=== PATIENT | female | born 1985 | race Caucasian/White ===

== ENCOUNTER → 2017-12-05 10:00 | Outpatient (CLI) | payer OTHER, SELFPAY ==
[2017-12-05 10:32] LABS: Absolute Lymphocyte Count 1.83 X10^3/ul (0.83-4.51); Absolute Neutrophil Count 2.8 X10^3/uL (2.0-7.7); Basophil# 0.02 X10^3/uL; Basophil% 0.4 % (0-1); Eosinophil# 0.12 X10^3/uL; Eosinophils% 2.4 % (0-5); Hematocrit 37.1 % (37-47); Hemoglobin 11.9 g/dl (12.0-15.0); Lymphocyte # 1.83 X10^3/ul (4.0); Mean Corp Hgb Conc 32.1 g/gl (32-36); Mean Corpuscular Hgb 27.5 pg (27.0-32.0); Mean Corpuscular Volume 85.7 fL (81-99); Mean Platelet Vol. 9.3 fl (6.2-12.0); Monocyte% 5.9 % (0-10); Neutrophil # 2.82 X10^3/uL (2.7-7.7); Neutrophil % 55.3 % (47-70); Platelet Count 344 K/mm3 (150-450); RBC Distribution Width SD 39.9 fl (35.1-43.9); Red Blood Count 4.33 M/mm3 (4.2-5.4); White Blood Count 5.1 K/mm3 (4.4-11.0)
[2017-12-05 10:36] LABS: POSITIVE COUNT NO; POSITIVE DIFFERENTIAL NO; POSITIVE MORPHOLOGY NO
[2017-12-05 10:58] LABS: Anion Gap 6 (5-15); BUN 21 mg/dL (7-18); BUN/Creat Ratio 36.2 RATIO (10-20); Calcium,Total 8.3 mg/dL (8.5-10.1); Chloride 105 mmol/L (98-107); Cholesterol 125 mg/dL (200); Creatinine, Serum 0.58 mg/dL (0.55-1.02); EST Glomerular Filtration Rate 128 mL/min (>60); Est Glom Filt Rate - Afr Amer 155 mL/min (>60); Glucose 81 mg/dL (74-106); High Density Lipoprotein 40 mg/dL; Potassium 3.7 mmol/L (3.5-5.1); Sodium Level 138 mmol/L (136-145); Triglycerides 43 mg/dL; Very Low Density Lipoprotein 9 mg/dL (5-40)
[2017-12-05 11:05] LABS: Vitamin D,25 Hydroxy 9.8 ng/mL (29.95-100.01)
== END ==
PROVIDERS: Family Provider Internal Medicine; PCP Internal Medicine; Visit Provider Internal Medicine
DX: Z00.00 Encounter for general adult medical examination without abnormal findings (principal)
CPT/HCPCS: 36415; 80048; 80061; 82306; 85025

== ENCOUNTER 2018-03-03 09:00 | Outpatient (RCR) | payer OTHER, SELFPAY | END 2018-03-14 23:59 | LOC: NS 09:00 | PROVIDERS: Family Provider Internal Medicine; PCP Internal Medicine; Visit Provider Internal Medicine | DX: E66.01 Morbid (severe) obesity due to excess calories (principal); Z71.3 Dietary counseling and surveillance | CPT/HCPCS: 97802; 97803 ==

== ENCOUNTER 2018-04-14 10:11 | Outpatient (RCR) | payer OTHER, SELFPAY | END 2018-04-14 23:59 | LOC: NS 10:11 | PROVIDERS: Family Provider Internal Medicine; PCP Internal Medicine; Visit Provider Internal Medicine | DX: E66.01 Morbid (severe) obesity due to excess calories (principal); Z71.3 Dietary counseling and surveillance | CPT/HCPCS: 97803 ==

== ENCOUNTER 2018-07-03 09:30 | Outpatient (RCR) | payer OTHER, SELFPAY | END 2018-07-15 23:59 | LOC: NS 09:30 | PROVIDERS: Family Provider Internal Medicine; PCP Internal Medicine; Visit Provider Internal Medicine | DX: E66.01 Morbid (severe) obesity due to excess calories (principal); Z71.3 Dietary counseling and surveillance | CPT/HCPCS: 97803 ==

== ENCOUNTER → 2020-02-18 | Outpatient (CLI) | payer OTHER, SELFPAY ==
[2020-02-18 15:12] VITALS: BMI 42.5
[2020-02-18 16:48] LABS: Absolute Lymphocyte Count 1.96 X10^3/uL (0.83-4.51); Basophil# 0.03 X10^3/uL; Basophil% 0.5 % (0-1); Eosinophils% 1.8 % (0-5); Hematocrit 39.2 % (37-47); Hemoglobin 12.4 g/dL (12.0-15.0); Lymphocyte # 1.96 X10^3/ul (4.0); Lymphocyte % 35.6 % (19-41); Mean Corp Hgb Conc 31.6 g/dL (32-36); Mean Corpuscular Hgb 28.6 pg (27.0-32.0); Mean Corpuscular Volume 90.5 fL (81-99); Mean Platelet Vol. 10.1 fl (6.2-12.0); Monocyte# 0.43 X10^3/uL; Monocyte% 7.8 % (0-10); NRBC Flagged by Analyzer 0 % (0-5); Neutrophil # 2.96 X10^3/uL (2.7-7.7); Neutrophil % 53.9 % (47-70); Platelet Count 320 K/mm3 (150-450); RBC Distribution Width CV 12.5 % (11.6-14.6); RBC Distribution Width SD 41.4 fl (35.1-43.9); Red Blood Count 4.33 M/mm3 (4.2-5.4); White Blood Count 5.5 K/mm3 (4.4-11.0)
[2020-02-18 17:09] LABS: Vitamin D,25 Hydroxy 12.6 ng/mL
[2020-02-18 17:14] LABS: ALB/GLOB Ratio 0.8 RATIO (0.9-2.4); AST(SGOT) 10 U/L (15-37); Alanine Aminotransfer ALT/SGPT 22 U/L (13-56); Albumin, Serum 3.4 g/dL (3.2-5.0); Alkaline Phosphatase 80 U/L (45-117); Anion Gap 5 (5-15); BUN 24 mg/dL (7-18); BUN/Creat Ratio 38.5 RATIO (10-20); Calcium,Total 8.6 mg/dL (8.5-10.1); Chloride 107 mmol/L (98-107); Creatinine, Serum 0.62 mg/dL (0.55-1.02); EST Glomerular Filtration Rate 116 mL/min (>60); Est Glom Filt Rate - Afr Amer 141 mL/min (>60); Globulin 4.1 g/dL (2.2-4.2); Glucose 99 mg/dL (74-106); Potassium 4.1 mmol/L (3.5-5.1); Protein, Total 7.5 g/dL (6.4-8.2); Sodium Level 138 mmol/L (136-145); T4 Free Direct 0.95 ng/dL (0.76-1.46); Thyroid Stim Hormone (TSH) 0.37 uIU/mL (0.358-3.74)
== END | disposition home or self-care (01) ==
LOC: BIMLAB 15:48
PROVIDERS: PCP Internal Medicine; Referring Provider Internal Medicine; Visit Provider Internal Medicine
DX: E55.9 Vitamin D deficiency, unspecified (principal); F41.8 Other specified anxiety disorders
CPT/HCPCS: 36415; 80053; 82306; 84439; 84443; 85025

== ENCOUNTER → 2020-05-31 | Outpatient (CLI) | payer OTHER, SELFPAY ==
[2020-05-15 09:27] VITALS: BMI 42.5
[2020-05-30 13:30] VITALS: BMI 42.5
== END | disposition home or self-care (01) ==
LOC: SL 20:36
PROVIDERS: PCP Internal Medicine; Referring Provider Internal Medicine; Visit Provider Internal Medicine
DX: G47.10 Hypersomnia, unspecified (principal)
CPT/HCPCS: 95810

== ENCOUNTER → 2020-06-27 | Outpatient (CLI) | payer OTHER, SELFPAY ==
[2020-06-14 08:27] VITALS: BMI 42.5
== END | disposition home or self-care (01) ==
PROVIDERS: PCP Internal Medicine; Visit Provider Nurse Practitioner Acute Care
DX: G47.33 Obstructive sleep apnea (adult) (pediatric) (principal)
CPT/HCPCS: 95806

== ENCOUNTER → 2020-07-21 11:11 | Outpatient (CLI) | payer OTHER, SELFPAY ==
[2020-06-14 08:27] VITALS: BMI 42.5
== END ==
PROVIDERS: PCP Internal Medicine; Visit Provider Nurse Practitioner Acute Care
DX: Z46.89 Encounter for fitting and adjustment of other specified devices (principal)

== ENCOUNTER 2020-08-02 10:00 | Outpatient (RCR) | payer OTHER, SELFPAY ==
[2020-06-14 08:27] VITALS: BMI 42.5
--- NOTE | 2020-06-28 14:06 | HP.PTEVAL ---
Patient's Visit Information JANY BEDOLLA is a 35 year old F referred to Physical Therapy by Dr. Patria Gifford DPM with a diagnosis of Posterior Tib Tendon Dysfunction. Date of Evaluation: 06/28/20 Physical Therapist: Radha Pozo DPT - Visit Plan Frequency: 1x/Week Duration: 2 Weeks Plan: Orthotics - Subjective Patient reports that she has footpain for years- has never had orthotics before. Left is worse than right- plantar fascitis and flat feet. 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 Foot pain comes and goes. Worst: 9/10 Agg: standing all day Best: 0/10 Eases: being off of them. Dr. Gifford who recommended orthotics for pes planus. Wears asics tennis shoes on her off days and KERLINE's for to work. Wearing crocks at home- no barefoot anymore. - Objective Posture: FH, RS, increased kyphosis- can correct but does not maintain. Gait: significant pes planus with valgus at the knees. SLS: 30 sec without LOB but increased pes planus. HR/TR: able without UE A. ROM: WFL in all planes of the ankle, knee and hip. Strength; 5/5 throughout LE. Flex: HS:moderate, Gastroc: moderate - Goals Goal 1:: Patient will report understanding of wear progression - Rehabilitation Potential Physical Therapy Diagnosis: Patient presents today per MD recommendations for orthotic fit for posterior tib dysfunction. Rehabilitation Potential: Excellent - Anticipated Interventions Thank you for the opportunity to evaluate your patient. For Medicare and Medicare HMO plans, please review the plan of care and approve it. It will need to be FAXED BACK to us at [phone] for Medicare purposes. For Medicare only, by signing this I certify the plan of care. Please let me know if there are questions or concerns regarding this plan of care. Physician Signature: Date:
--- NOTE | 2020-08-02 10:12 | HP.PTDCSUM ---
It has been my pleasure to treat JANY BEDOLLA referred by Dr. Patria Gifford DPM, with the diagnosis of Posterior Tib Tendon Dysfunction for a total of 2 visit(s). Discharge Date: Please see the following information for a summary of their discharge status. Subjective: Here to get my orthotics Objective/Function: Patient was educate on wear schedule and verbalized understanding, encouraged her to call or come back if questions or concerns Goal 1:: Patient will report understanding of wear progression Goal Progress: Goal Met Plan: Discharge If there are questions or concerns regarding this patient's physical therapy, please feel free to call me at [phone]. Thank you for the referral of this patient. Sincerely, YO HernandezT
== END 2020-08-02 19:00 | disposition home or self-care (01) ==
LOC: PT 10:00
PROVIDERS: PCP Internal Medicine; Referring Provider Podiatrist; Visit Provider Podiatrist
DX: M76.829 Posterior tibial tendinitis, unspecified leg (principal)
CPT/HCPCS: 97161; 97760; 97763

== ENCOUNTER → 2021-02-13 13:00 | Outpatient (CLI) | payer OTHER, SELFPAY ==
[2021-01-16 07:36] VITALS: BMI 40.6
== END ==
PROVIDERS: PCP Internal Medicine; Visit Provider Nurse Practitioner Acute Care
DX: G47.33 Obstructive sleep apnea (adult) (pediatric) (principal)
CPT/HCPCS: 98960; G0463

== ENCOUNTER → 2021-06-22 10:17 | Outpatient (CLI) | payer OTHER, SELFPAY ==
--- NOTE | 2021-06-22 10:37 | RAD_ITS ---
STUDY: X-RAY CHEST REASON FOR EXAM: Female, 36 years old. Chest pain/pressure TECHNIQUE: PA and lateral views of the chest. COMPARISON: None. FINDINGS: The lungs are clear and expanded. There is no demonstrated pleural abnormality. Normal size heart. Normal mediastinum and nimesh. Normal visualized pulmonary arteries. Normal visualized aortic arch and descending thoracic aorta. Normal visualized thoracic spine. Normal visualized ribs, clavicles, and shoulders. There is no demonstrated abnormality of the visualized soft tissue structures of the upper abdomen. RAD/Chest PA and Lateral IMPRESSION: Normal x-ray examination of the chest. Electronically Signed: Yanick Peace MD at 11:55 EDT , Service support ,
[2021-06-22 11:35] LABS: Absolute Lymphocyte Count 1.74 X10^3/uL (0.83-4.51); Absolute Neutrophil Count 2.6 X10^3/uL (2.0-7.7); Basophil# 0.02 X10^3/uL; Basophil% 0.4 % (0-1); Eosinophil# 0.15 X10^3/uL; Eosinophils% 3.1 % (0-5); Hematocrit 34.9 % (37-47); Hemoglobin 11.5 g/dL (12.0-15.0); Lymphocyte # 1.74 X10^3/ul (0.83-4.51); Lymphocyte % 35.7 % (19-41); Mean Corpuscular Hgb 29.3 pg (27.0-32.0); Mean Corpuscular Volume 88.8 fL (81-99); Mean Platelet Vol. 10.4 fl (6.2-12.0); Monocyte# 0.37 X10^3/uL; Monocyte% 7.6 % (0-10); NRBC Flagged by Analyzer 0 % (0-5); Neutrophil # 2.59 X10^3/uL (2.7-7.7); Platelet Count 292 K/mm3 (150-450); RBC Distribution Width CV 12.8 % (11.6-14.6); RBC Distribution Width SD 41.6 fl (35.1-43.9); Red Blood Count 3.93 M/mm3 (4.2-5.4); White Blood Count 4.9 K/mm3 (4.4-11.0)
[2021-06-22 12:07] LABS: AST(SGOT) 10 U/L (15-37); Alanine Aminotransfer ALT/SGPT 19 U/L (13-56); Albumin, Serum 3.5 g/dL (3.2-5.0); Alkaline Phosphatase 71 U/L (45-117); Anion Gap 5 (5-15); BUN 18 mg/dL (7-18); BUN/Creat Ratio 28.5 RATIO (10-20); Bilirubin, Direct 0.12 mg/dL (0.00-0.30); Calcium,Total 8.7 mg/dL (8.5-10.1); Chloride 106 mmol/L (98-107); Cholesterol 132 mg/dL (200); Creatinine, Serum 0.63 mg/dL (0.55-1.02); EST Glomerular Filtration Rate 114 mL/min (>60); Est Glom Filt Rate - Afr Amer 138 mL/min (>60); Globulin 3.8 g/dL (2.2-4.2); Glucose 87 mg/dL (74-106); High Density Lipoprotein 47 mg/dL; Protein, Total 7.3 g/dL (6.4-8.2); Sodium Level 139 mmol/L (136-145); Triglycerides 38 mg/dL; Very Low Density Lipoprotein 8 mg/dL (5-40)
== END ==
PROVIDERS: PCP Internal Medicine; Referring Provider Internal Medicine Cardiovascular Disease; Visit Provider Internal Medicine Cardiovascular Disease
DX: R07.9 Chest pain, unspecified (principal); R06.00 Dyspnea, unspecified; R01.1 Cardiac murmur, unspecified
CPT/HCPCS: 36415; 71046; 80048; 80061; 80076; 85025

== ENCOUNTER → 2021-07-18 10:47 | Outpatient (CLI) | payer OTHER, SELFPAY ==
--- NOTE | 2021-07-18 10:49 | ECHOD_ITS ---
Reason For Study: MURMUR Procedure This was a 2D Doppler, Color Flow transthoracic echocardiogram. Exam performed in department. Left Ventricle Normal LV size. Left ventricular systolic function is normal. The estimated ejection fraction is 65 %. No evidence for diastolic dysfunction. No regional wall motion abnormalities noted. Right Ventricle Normal RV size. Normal systolic function. Atria Normal left atrium. Normal right atrium. No doppler evidence for ASD. Mitral Valve There is no mitral annular calcification. Normal mitral valve. Trivial mitral valve insufficiency. Tricuspid Valve Normal tricuspid valve. Mild tricuspid valve insufficiency. Right ventricular systolic pressure estimated to be 33 mmHg. Aortic Valve Trisinus/trileaflet aortic valve. Normal aortic valve. Pulmonic Valve The pulmonic valve is not well visualized. Great Vessels Normal sized aortic root. Pericardium/Pleural No pericardial effusion. MMode/2D Measurements & Calculations LVIDd: 4.5 cm IVSd: 0.80 cm Ao root diam: 3.2 cm LVIDs: 3.0 cm LVPWd: 0.79 cm RVDd: 3.3 cm FS: 32.2 % LAV(MOD-bp): 49.6 ml LVAd ap4: 35.1 cm2 LVAd ap2: 42.7 cm2 LAV(MOD-bp) Indexed: 23.4 ml/m2 LVLd ap4: 8.8 cm LVLd ap2: 9.3 cm LAV(MOD-sp2): 45.6 ml EDV(MOD-sp4): 115.1 ml EDV(MOD-sp2): 162.5 ml LAV(MOD-sp4): 51.9 ml EDV(sp4-el): 119.1 ml EDV(sp2-el): 166.5 ml LVAs ap4: 18.7 cm2 LVAs ap2: 17.2 cm2 LVLs ap4: 7.2 cm LVLs ap2: 6.7 cm ESV(MOD-sp4): 41.4 ml ESV(MOD-sp2): 38.5 ml ESV(sp4-el): 41.3 ml ESV(sp2-el): 37.4 ml EF(MOD-sp4): 64.0 % EF(MOD-sp2): 76.3 % EF(sp4-el): 65.4 % SV(MOD-sp4): 73.6 ml SV(MOD-sp2): 124.1 ml SV(sp4-el): 77.8 ml LA dimension(2D): 3.6 cm LA A4 area: 17.0 cm2 RA A4 area: 14.6 cm2 Doppler Measurements & Calculations MV E max ted: 135.4 cm/sec Lat Peak E' Ted: 18.6 cm/sec Med Peak E' Ted: 11.2 cm/sec MV A max ted: 84.2 cm/sec E/E' lat: 7.3 E/E' med: 12.1 MV E/A: 1.6 Ao V2 max: 146.4 cm/sec LV V1 max: 134.7 cm/sec TR max ted: 274.3 cm/sec Ao max P.6 mmHg LV V1 max P.3 mmHg TR max P.1 mmHg ECHO/Echo Complete Interpretation Summary Left ventricular systolic function is normal. The estimated ejection fraction is 65 %. Trivial mitral valve insufficiency. Mild tricuspid valve insufficiency. Right ventricular systolic pressure estimated to be 33 mmHg. No evidence for diastolic dysfunction. Ordering Physician: Jesus Killian Referring Physician: Fredo Beasley Performed By: Mayte Cheatham, JDU, RVT
--- NOTE | 2021-07-18 16:56 | STRESSREP ---
Stress Test Report Date: 07-18-2021 Procedure: Exercise tolerance test Indications: Chest pain; shortness of breath/dyspnea on exertion Consent: Per the patient Procedure: The patient exercised on a Sterling protocol for 5 minutes completing Stage II and 2 minutes of Stage III achieving a peak heart rate of 162 bpm (87% predicted maximal heart rate) with a peak blood pressure 184/80 mmHg and a peak MET capacity of approximately 7 MET's. The baseline ECG demonstrated normal sinus rhythm. The peak exercise ECG demonstrated no obvious ECG changes. There were no cardiac dysrhythmias pretest, during exercise, or recovery. The functional capacity was considered average. The patient had no complaint of chest discomfort during exercise or recovery. The examination was discontinued secondary to chest discomfort and dyspnea. Impression: 1. Technically adequate (percent predicted maximal heart rate greater than 85%) exercise tolerance test 2. Peak exercise ECG with no obvious ECG changes 3. There were no cardiac dysrhythmias during exercise or recovery This note was generated with [employer] software. It may contain incorrect words, spelling, and punctuation that were not noted in checking the note before signing.
== END ==
PROVIDERS: PCP Internal Medicine; Referring Provider Internal Medicine Cardiovascular Disease; Visit Provider Internal Medicine Cardiovascular Disease
DX: R07.9 Chest pain, unspecified (principal); R06.00 Dyspnea, unspecified; R01.1 Cardiac murmur, unspecified
CPT/HCPCS: 93017; 93306

== ENCOUNTER → 2021-07-27 08:12 | Outpatient (CLI) | payer OTHER, SELFPAY ==
--- NOTE | 2021-07-27 13:51 | PFTCOMP_ITS ---
COMPLETE PULMONARY FUNCTION TEST INTERPRETATION Brief HPI: Patient is a 36 year old female, currently under the care of myself, who presents to [facility] for complete pulmonary function tests secondary to diagnosis of dyspnea. Respiratory therapist reports good effort and reproducible results. Interpretation: Forced expiration spirometry shows no large airways obstructive ventilatory defect with an FEV1 of 104% predicted. There is no significant bronchodilator response by strict ATS criteria. Spirograms are of good quality and plateau normally. The respiratory flow volume loop shows a normal pattern. Lung volumes by body plethysmography show a normal total lung capacity at 5.71 L, 108% predicted. All other lung volumes are within normal limits. Diffusion capacity by carbon monoxide is normal at 91% predicted. The airway resistance is normal. No previous pulmonary function tests were available for review. Impression: These pulmonary function tests are within normal limits
== END ==
PROVIDERS: PCP Internal Medicine; Referring Provider Internal Medicine Cardiovascular Disease; Visit Provider Internal Medicine Cardiovascular Disease
DX: G47.33 Obstructive sleep apnea (adult) (pediatric) (principal); R06.00 Dyspnea, unspecified; R01.1 Cardiac murmur, unspecified; R07.9 Chest pain, unspecified; R00.1 Bradycardia, unspecified
CPT/HCPCS: 94060; 94726; 94729

== ENCOUNTER → 2021-08-16 12:55 | Outpatient (CLI) | payer OTHER, SELFPAY ==
--- NOTE | 2021-08-16 12:57 | CT_ITS ---
STUDY: CARDIAC CALCIUM SCORING - CT CHEST REASON FOR EXAM: Female, 36 years old. CTA CORONARY ABNL CARDIOVASCULAR RESULTS TECHNIQUE: Axial non-enhanced images were acquired through the heart for the sole purpose of measuring coronary artery calcium. Individualized dose optimization techniques were used for this CT. COMPARISON: None. FINDINGS: Visualized surrounding anatomy: Normal. Left Main Coronary Artery: 0 Left Anterior Descending Artery: 0 Left Circumflex Artery: 0 Right Coronary Artery: 0 Total Calcium Score: 0 IMPRESSION: A Calcium Score of 0 places the patient in the approximate 50 percentile, based on the [employer] data calculator. Please go to: [email or web address]-[email or web address].aspx , for a description of the calculator. Electronically Signed: Ghanshyam Tomas MD at 14:12 EST , Service support , STUDY: CTA CORONARY REASON FOR EXAM: Female, 36 years old. chest pain Limited CT OVER READ ONLY RADIATION DOSAGE (If Supplied By Facility): CTDIvol = ( 26.80 ) mGy, DLP = ( 1254.80 ) mGycm TECHNIQUE: Tomographic images were obtained of the heart and chest with a 64 detector row scanner using slice thicknesses of less than 1 mm. 50mL [id number]-[id number] was injected in the arm. Post-processing of the angiographic images was performed, with multiplanar reformation and 3D reconstruction. Individualized dose optimization techniques were used for this CT. MEDICATION: none noted HEART RATE AFTER MEDICATION: not noted bpm TECHNICAL QUALITY: Excellent COMPARISON: None. CORONARY ANGIOGRAPHY: Coronary CT Angiogram Descriptors of Atherosclerosis: Stenosis: None (0%) Mild (< 50%) Moderate (50-70%) Severe (70-90%) Subtotal/Total Occlusion (90-100%) Non-Evaluable Plaque Characteristics: None Non-Calcified (Soft) Calcified Mixed FINDINGS: LEFT MAIN CORONARY ARTERY: Left Main Coronary Artery CT Angiogram: Free of significant atherosclerosis. LEFT ANTERIOR DESCENDING ARTERY: Left Anterior Descending (LAD) Coronary Artery CT Angiogram: Proximal 1/3: Free of significant atherosclerosis. Middle 1/3: Free of significant atherosclerosis. Distal 1/3: Free of significant atherosclerosis. 1st Diagonal Branch: Free of significant atherosclerosis. 2nd Diagonal Branch: Free of significant atherosclerosis. LEFT CIRCUMFLEX ARTERY: Left Circumflex (LCx) Coronary Artery CT Angiogram: Proximal 1/2: Free of significant atherosclerosis. Distal 1/2: Free of significant atherosclerosis. High Lateral Branches: Free of significant atherosclerosis. Obtuse Marginal Branches: Free of significant atherosclerosis. I-L Branches: NA. PDA: NA. RIGHT CORONARY ARTERY: Right Coronary Artery (RCA) CT Angiogram: Proximal 1/3: Free of significant atherosclerosis. Middle 1/3: Free of significant atherosclerosis. Distal 1/3: Free of significant atherosclerosis. PDA: Free of significant atherosclerosis. I-L Branches: Free of significant atherosclerosis. CORONARY ARTERY DOMINANCE: Right CORONARY ARTERY BYPASS GRAFTS: None. NONCORONARY CARDIAC STRUCTURE: CARDIAC CHAMBERS: Normal CARDIAC VALVES: Normal. PERICARDIUM: Normal. GREAT VESSELS: Normal. VISUALIZED LUNG PARENCHYMA, MEDIASTINUM AND CHEST WALL: There are thoracic aortic calcifications consistent for atherosclerotic disease. There is no dissection or hematoma noted in the thoracic aorta. CT/Limited Chest CT w/CCTA IMPRESSION: Normal examination free of significant atherosclerosis. Electronically Signed: Ghanshyam Tomas MD at 14:14 EST , Service support ,
[2021-08-16 13:10] VITALS: BP 132/73; PULSE 51; RESP 16; O2SAT 99; BMI 38.2
[2021-08-16 13:22] VITALS: BP 132/78; PULSE 52
[2021-08-16] MEDS: Nitroglycerin SL (ED/IMG/CATH) 0.4 MG TABLET SL (13:22)
[2021-08-16 13:33] VITALS: BP 122/84; PULSE 54; RESP 16; O2SAT 99
--- NOTE | 2021-08-16 18:59 | CA.SCORE ---
Calcium Scoring Date of Study:: 08/16/21 Coronary Calcium Scoring: High-resolution Computed Tomographic imaging of the chest was performed on 08/16/2021 with particular attention paid to the coronary arteries. Images from the examination were analyzed for the presence and extent of coronary artery calcification , using coronary calcium quantification software. The patient tolerated the procedure well and there were no complications. The results of the coronary calcification analysis are provided below. Findings Coronary Artery Left Main (LM): 0 Left Anterior Descending (LAD): 0 Left Circumflex (LCX): 0 Right Coronary Artery (RCA): 0 Total Agatston Score: 0 Percentile Ranking: According to prepublished reference tables approximately 50% of patients of the same gender and/or similar age had the same and/or lower scores. Calcium Scoring Interpretation: 0 No identifiable atherosclerotic plaque. Very low cardiovascular disease risk. <5% chance of presence coronary artery disease A Negative Examination 1-10 Minimal Plaque burden. Significant coronary artery disease very unlikely. 11-100 Mild plaque burden. Likely mild or minimal coronary atherosclerosis. 101-400 Moderate plaque burden Moderate non-obstructive coronary artery disease highly likely. Over 400 Extensive plaque burden. High likelihood of at least one significant coronary stenosis (>50% diameter) Calcium Score: 0 Negative Examination Conclusion: Continue cardiovascular risk factor evaluation and care as deemed appropriate. This note was generated using a voice recognition system and there may be incorrect words, spelling or punctuation that were not noted when reviewing the office note prior to saving.
--- NOTE | 2021-08-16 19:00 | CCTA_ITS ---
CCTA w/Cont Coronary Arteries Date of Study:: 08/16/21 Chest pain Consent:: Per patient The patient underwent high-resolution CT imaging of the chest on 08-16-2021 with particular attention to the coronary arteries. The coronary arteries were evaluated for the presence and extent of coronary artery calcification as well as for any angiographic evidence suggestive of underlying atherosclerotic coronary artery disease. The patient appeared to tolerate the procedure well with no complications being reported. LEFT MAIN CORONARY ARTERY: This is a large vessel which gives rise to the left anterior descending, left circumflex coronary artery, and potentially a small intermediate ramus coronary artery. The left main coronary artery appears to be angiographically within normal limits. LEFT ANTERIOR DESCENDING CORONARY ARTERY: This is a large vessel that gives rise to the appearance of a small septal special crimes investigator system and a small to moderate size diagonal branching system and subsequently courses to the LV apex. The LAD system appears to be angiographically within normal limits. LEFT CIRCUMFLEX CORONARY ARTERY: This is a large system that gives rise to a small first obtuse marginal branch and continues on as a moderate-sized obtuse marginal branch. The LCx system appears to be angiographically within normal limits. RIGHT CORONARY ARTERY: This appears to be a large dominant system giving rise to a right PDA. The RCA system appears to be angiographically within normal limits. THORACIC AORTA: The thoracic aorta appears to be angiographically within normal limits. PULMONARY ARTERY: The main pulmonary artery and and proximal portions of the right and left pulmonary artery appear to be patent with no obvious filling defects. LEFT ATRIUM/APPENDAGE: The left atrium/appendage appears to be patent without any obvious filling defects. MITRAL VALVE: The mitral valve appears to be a bileaflet valve. AORTIC VALVE: The aortic valve appears to be a trileaflet valve. LEFT VENTRICLE: The left ventricle appears to demonstrate grossly normal left ventricular size, wall motion, and systolic function. The LVEF was reported at 58%. CORONARY CALCIUM SCORE: The coronary calcium score is reported as 0. This note was generated using a voice recognition system and there may be incorrect words, spelling or punctuation that were not noted when reviewing the office note prior to saving.
== END ==
PROVIDERS: PCP Internal Medicine; Referring Provider Internal Medicine Cardiovascular Disease; Visit Provider Internal Medicine Cardiovascular Disease
DX: R01.1 Cardiac murmur, unspecified (principal); R07.9 Chest pain, unspecified; R06.00 Dyspnea, unspecified; G47.33 Obstructive sleep apnea (adult) (pediatric)
CPT/HCPCS: 75571; 75574; 76380; Q9967

== ENCOUNTER → 2021-08-22 | Outpatient (CLI) | payer OTHER, SELFPAY ==
[2021-08-24 16:19] LABS: HPV APTIMA, High Risk Negative (Negative)
== END | disposition home or self-care (01) ==
LOC: LABSPEC 12:25
PROVIDERS: PCP Internal Medicine; Referring Provider Nurse Practitioner Women's Health; Visit Provider Nurse Practitioner Women's Health
DX: Z01.419 Encounter for gynecological examination (general) (routine) without abnormal findings (principal)
CPT/HCPCS: 87624; 88175; G0145

== ENCOUNTER 2021-10-23 21:56 | Outpatient (CLI) | payer OTHER, SELFPAY ==
[2021-10-23] MEDS: Zolpidem Tartrate 5 MG Tablet PO (21:45)
== END 2021-10-23 23:59 | disposition home or self-care (01) ==
PROVIDERS: PCP Internal Medicine; Referring Provider Internal Medicine Critical Care Medicine; Visit Provider Internal Medicine Critical Care Medicine
DX: G47.33 Obstructive sleep apnea (adult) (pediatric) (principal); E66.01 Morbid (severe) obesity due to excess calories
CPT/HCPCS: 95811

== ENCOUNTER 2021-12-19 12:17 | Outpatient (CLI) | payer OTHER, SELFPAY | END 2021-12-19 23:59 | disposition home or self-care (01) | LOC: SL 12:17 | PROVIDERS: PCP Internal Medicine; Visit Provider Nurse Practitioner Acute Care | DX: Z00.00 Encounter for general adult medical examination without abnormal findings (principal) ==

== ENCOUNTER → 2022-10-01 | Outpatient (CLI) | payer OTHER, SELFPAY ==
--- NOTE | 2022-10-01 06:29 | MRI_ITS ---
STUDY: MRI LOWER EXTREMITY LEFT THIGH WITHOUT CONTRAST REASON FOR EXAM: Female, 37 years old. L thigh strain -- TECHNIQUE: Standardized fat and water weighted pulse sequences were obtained in all 3 orthogonal planes, post contrast administration. was administered for the contrast portion of the examination. COMPARISON: MRI of the left knee dated October 01, 2022 FINDINGS: There is a moderate size tear of the distal one third aspect of the vastus lateralis muscle starting at the musculotendinous junction and extending distally toward the knee that measures 8 cm in the craniocaudal dimension and 1.82 cm in width. Edema and small amounts of fluid are present in the torn muscle fibers, however the tendon is intact and unaffected with exception of a small focal area of strain and thinning at the musculotendinous junction. Normal subcutis adipose space. Normal quadriceps, adductor and hamstring muscles. Normal quadriceps extensor mechanism with a normal rectus femoris, vastus medialis, and intermedius muscles. Normal femur. No marrow edema or occult fracture is present. MRI/Lower Ext/No Jt/w/o IMPRESSION: 1. Moderate size tear of the distal one third aspect of the vastus lateralis muscle Electronically Signed: Chauncey Church MD at 10:50 EST ,
--- NOTE | 2022-10-01 06:29 | MRI_ITS ---
STUDY: MRI LEFT KNEE REASON FOR EXAM: Female, 37 years old. pt felt tear when bending down 1 month ago; pain lateral to patella and anterior distal thigh; patient also had a left femur mri TECHNIQUE: Standardized fat and water weighted pulse sequences were obtained in all 3 orthogonal planes. COMPARISON: MRI of the left femur/thigh dated October 01, 2022. X-ray of the left knee dated August 30, 2022. FINDINGS: A moderate size tear of the distal one third aspect of the vastus lateralis muscle is partially visualized on this Knee MRI the fully visualized on the MRI of the left femur performed on the same day. The tear starts at the musculotendinous junction and extends to the quadriceps insertion site but only mild strain edema and thinning of the tendon but no full-thickness tearing or retraction of the tendon. A small to moderate size knee joint effusion is also present which is most prominent on the lateral side of the joint space due to the vastus lateralis tear. Mild strain edema and thickening is present in the lateral side of the quadriceps insertion site, but the remaining aspects of the quadriceps tendon are normal. Normal medial meniscus. There is diffuse, less than 50% thickness articular cartilage loss of the medial femorotibial compartment. Normal medial femoral condyle and tibial plateau. Normal medial collateral ligamentous complex (MCL). Normal distal semimembranosus, gracilis and semitendinosus tendons. Normal lateral meniscus. There is diffuse, less than 50% thickness articular cartilage loss of the lateral femorotibial compartment. Normal lateral femoral condyle and tibial plateau. Normal proximal tibiofibular articulation. Normal lateral collateral (fibular) ligament. Normal popliteus tendon. Normal biceps femoris tendon. Normal anterior cruciate ligament (ACL). Normal posterior cruciate ligament (PCL). There is a lateral patellar tilt. There is full-thickness loss of cartilage over the lateral patellar facet with mild to moderate underlying subchondral edema and cystic changes. There is greater than 50% loss of cartilage over the lateral trochlear groove. The remaining trochlear and medial patellar facet cartilage surfaces are preserved. Normal medial and lateral patellar retinaculum. Normal patellar tendon. Normal Hoffa''s fat pad. Small Davila''s cyst noted. A small intraosseous ganglion cyst is present in the posterior midline aspect of the tibial plateau just beneath the PCL insertion site. The soft tissues are unremarkable. The otherwise visualized osseous structures are unremarkable. MRI/Lower Ext Joint Only (Routine) IMPRESSION: 1. Moderate size tear of the distal aspect of the vastus lateralis muscle with only minimal strain injury to the tendon at the muscle tendinous junction 2. Mild strain injury of the lateral aspect of the quadriceps tendon 3. Small to moderate size knee joint effusion 4. Moderate to full-thickness degenerative loss of cartilage in the lateral patellofemoral compartment Electronically Signed: Chauncey Church MD at 11:02 EST ,
== END | disposition home or self-care (01) ==
LOC: MRI 06:29
PROVIDERS: PCP Internal Medicine; Referring Provider Physician Assistant Surgical; Visit Provider Physician Assistant Surgical
DX: S76.912A Strain of unspecified muscles, fascia and tendons at thigh level, left thigh, initial encounter (principal); S86.912A Strain of unspecified muscle(s) and tendon(s) at lower leg level, left leg, initial encounter; X58.XXXA Exposure to other specified factors, initial encounter
CPT/HCPCS: 73718; 73721

== ENCOUNTER → 2022-11-12 | Outpatient (CLI) | payer OTHER, SELFPAY | END | disposition home or self-care (01) | LOC: LABSPEC 13:21 | PROVIDERS: PCP Internal Medicine; Visit Provider Nurse Practitioner Women's Health | DX: N89.8 Other specified noninflammatory disorders of vagina (principal) | CPT/HCPCS: 87070; 87205 ==

== ENCOUNTER 2023-07-16 09:23 | Outpatient (CLI) | payer OTHER, SELFPAY | END 2023-07-16 23:59 | disposition home or self-care (01) | LOC: LABSPEC 09:24 | PROVIDERS: PCP Internal Medicine; Visit Provider Internal Medicine | DX: J03.91 Acute recurrent tonsillitis, unspecified (principal) | CPT/HCPCS: 87635 ==

== ENCOUNTER → 2023-08-13 | Outpatient (CLI) | payer OTHER, SELFPAY | END | disposition home or self-care (01) | PROVIDERS: PCP Internal Medicine; Visit Provider Physician Assistant Surgical | DX: J02.0 Streptococcal pharyngitis (principal) | CPT/HCPCS: 87070; 87077; 87186 ==

== ENCOUNTER 2023-08-19 09:00 | Outpatient (RCR) | payer OTHER, SELFPAY | END 2023-09-14 23:59 | LOC: NS 09:00 | PROVIDERS: PCP Internal Medicine; Referring Provider Internal Medicine; Visit Provider Internal Medicine | DX: Z71.3 Dietary counseling and surveillance (principal); E66.9 Obesity, unspecified; Z68.41 Body mass index [BMI] 40.0-44.9, adult | CPT/HCPCS: 97802 ==

== ENCOUNTER → 2023-09-11 | Outpatient (CLI) | payer OTHER, SELFPAY ==
--- OUTSIDE RECORDS SUMMARY | 2023-09-11 17:16 | XMS RPT_ITS | CCD ---
Author Name Unknown Address [address] [place] [address] Organization [facility] Care Team Providers Care Sales Process Manager Name Role Phone Jefferson MEZA, Catarina Valenzuela Unavailable [phone] CLARY Mead RN, Laura Robertson Unavailable Unavailabl e Froylan PERRY, Alexx Ruiz Unavailable Nely Disla LPN Unavailable Unavailab SUKHDEV Thrasher Unavailable Unavailable Nely Disla LPN Unavailable Unavailab Amna Scherer LPN Unavailable Unavailable Allergies Allergy Classification Reported Allergen(s) Allergy Type Date of Onset Reaction(s) Facility (2 sources) bacitracin / neomycin / polymyxin b / pramoxine drug allergy 7 [facility] (1 source) Benzalkonium; Translations: [BENZALKONIUM CHLORIDE] Drug Allergy 2 [facility] (1 source) Cat; Translations: [CATS] Propensity to adverse reactions (disorder) 2 [facility] (1 source) Dog; Translations: [DOGS] Propensity to adverse reactions (disorder) 6 [facility] (1 source) House dust mite; Translations: [DUST MITES] Propensity to adverse reactions (disorder) 2 [facility] Medications Completed/Discontinued Medications Medication Drug Class(es) Dates Sig (Normalized) Sig (Original) SULFACETAMIDE SODIUM (4 sources) Sulfonamide Antibacterial Start: 04-15-2017 End: 04-22-2017 take 2 drop(s) into the eye(s) every three hours BLEPH-10 10 % SOLN 2 drops to each eye every 3 hours while awake SULFACETAMIDE SODIUM [id number] Alexx PERRY Problems Problem Classification Problem Date Documented Da te Episodic/Chronic Contraceptive and procreative management (2 sources) Encounter for sterilization; Translations: [Encounter for sterilization] Onset: 05-15-2017 05-19-2017 Episodic Inflammation, infection of eye (4 sources) Acute conjunctivitis; Translations: [Unspecified acute conjunctivitis, unspecified eye] Onset: 04-15-2017 04-15-2017 Episodic Other upper respiratory disease (7 sources) Pain in throat; Translations: [Acute pharyngitis, unspecified] Onset: 04-08-2017 04-08-2017 Episodic Other upper respiratory infections (7 sources) Upper respiratory infection; Translations: [Acute upper respiratory infection, unspecified] Onset: 04-08-2017 04-08-2017 Episodic Results Test Name Value Interpretation Reference Range Facil ity Vital Signs Date Time Vital Sign Value Performing Clinician Celina litlamar 05-15-2017 14:28-0400 BMI (Body Mass Index) 41.96 kg/m2 Catarina Paulino MD [facility] 05-15-2017 14:28-0400 Body Temperature 97.8 [degF] Catarina Paulino MD [facility] 05-15-2017 14:28-0400 Body Temperature 97.81 [degF] Catarina Paulino MD [facility] 05-15-2017 14:28-0400 BP Diastolic 78 mm[Hg] Catarina Paulino MD [facility] 05-15-2017 14:28-0400 BP Systolic 120 mm[Hg] Catarina Paulino MD [facility] 05-15-2017 14:28-0400 Height 167.64 cm Catarina Paulino MD [facility] 05-15-2017 14:28-0400 Pulse (Heart Rate) 70 /min Catarina Paulino MD [facility] 05-15-2017 14:28-0400 Respiratory Rate 16 /min Catarina Paulino MD [facility] 05-15-2017 14:28-0400 Weight 117.94 kg Catarina Paulino MD [facility] 05-15-2017 14:28-0400 Weight 117.93 kg Catarina Paulino MD [facility] 04-15-2017 13:37-0400 Body Temperature 97.8 [degF] Alexx Galeano VICKY [facility] Work Phone: 04-15-2017 13:37-0400 BP Diastolic 72 mm[Hg] Alexx PERRY [facility] Work Phone: 04-15-2017 13:37-0400 BP Systolic 130 mm[Hg] Alexx PERRY [facility] Work Phone: 04-15-2017 13:37-0400 Height 166.37 cm Alexx PERRY [facility] Work Phone: 04-15-2017 13:37-0400 Pulse (Heart Rate) 86 /min Alexx PERRY [facility] Work Phone: 04-08-2017 12:22-0400 BMI (Body Mass Index) 42.8 kg/m2 Nely Disla HEAD BATCHER [facility] Work Phone: 04-08-2017 12:22-0400 Body Temperature 98.1 [degF] Nely Disla HEAD BATCHER [facility] Work Phone: 04-08-2017 12:22-0400 BP Diastolic 68 mm[Hg] Nely Disla HEAD BATCHER [facility] Work Phone: 04-08-2017 12:22-0400 BP Systolic 116 mm[Hg] Nely Disla HEAD BATCHER [facility] Work Phone: 04-08-2017 12:22-0400 Height 166.37 cm Nely Disla LPN [facility] Work Phone: 04-08-2017 12:22-0400 Pulse (Heart Rate) 79 /min Nely Disla HEAD BATCHER [facility] Work Phone: 04-08-2017 12:22-0400 Respiratory Rate 14 /min Nely Disla HEAD BATCHER [facility] Work Phone: 04-08-2017 12:22-0400 Weight 118.48 kg Nely Disla MADELEINE [facility] Work Phone: Encounters Encounter Date Encounter Type Care Provider Facility Start: 01-13-2018 End: 01-15-2018 Patient encounter procedure SUKHDEV Treviño [facility] Start: 12-30-2017 End: 12-31-2017 Patient encounter procedure SUKHDEV Treviño [facility] Start: 09-11-2017 End: 09-11-2017 Patient encounter procedure SUKHDEV Treviño [facility] Procedures Date Procedure Procedure Detail Performing Clinician Start: 04-08-2017 End: 04-08-2017 [facility] streptococcus group a Alexx PERRY Work Phone: Start: 04-08-2017 End: 04-08-2017 Rapid strep test Alexx PERRY Work Phone: Plan of Treatment Date Care Activity Detail Author Start: 06-19-2017 End: 06-19-2017 Appointment Appointment [facility] Work Phone: Start: 04-18-2017 End: 04-18-2017 Appointment Appointment [facility] Work Phone: Start: 04-15-2017 End: 04-15-2017 Appointment Appointment [facility] Work Phone: Start: 04-08-2017 End: 04-08-2017 Appointment Appointment [facility] Work Phone: Start: 04-08-2017 End: 04-08-2017 Streptococcus.beta-hemo lytic [Presence] in Throat by Organism specific culture *Culture, R/O Strep A Swab [facility] Work Phone: Patient Education PHARYNGITIS [facility] in Work Phone: Summary Purpose Family History No Family History Records Found Advance Directives No Advanced Directives Records Found Additional Source Comments INFORMATION SOURCE (unrecogn ized section and content) FOR RECORDS PERTAINING TO PATIENTS WHO ARE OR HAVE BEEN ENROLLED IN A CHEMICAL DEPENDENCY/SUBSTANCEABUSE PROGRAM, SOME INFORMATION MAY BE OMITTED. This clinical summary was aggregated from multiple sources. Caution should be exercised in using it in the provision of clinical care. This summary normalizes information from multiple sources, and as a consequence, information in this document may materially change the coding, format and clinical context of patient data. In addition, data may be omitted in some cases. CLINICAL DECISIONS SHOULD BE BASED ON THE PRIMARY CLINICAL RECORDS. [facility]. provides no warranty or guarantee of the accuracy or completeness of information in this document.
== END | disposition home or self-care (01) ==
PROVIDERS: PCP Internal Medicine; Visit Provider Otolaryngology
DX: J02.9 Acute pharyngitis, unspecified (principal)
CPT/HCPCS: 87070

== ENCOUNTER 2023-10-14 09:00 | Outpatient (RCR) | payer OTHER, SELFPAY | END 2023-10-15 23:59 | LOC: NS 09:00 | PROVIDERS: PCP Internal Medicine; Referring Provider Internal Medicine; Visit Provider Internal Medicine | DX: Z71.3 Dietary counseling and surveillance (principal); E66.9 Obesity, unspecified | CPT/HCPCS: 97803 ==

== ENCOUNTER 2023-12-02 08:17 | Outpatient (RCR) | payer OTHER, SELFPAY | END 2023-12-14 23:59 | LOC: NS 08:17 | PROVIDERS: PCP Internal Medicine; Referring Provider Internal Medicine; Visit Provider Internal Medicine | DX: Z71.3 Dietary counseling and surveillance (principal); E66.9 Obesity, unspecified | CPT/HCPCS: 97803 ==

== ENCOUNTER 2023-12-31 08:07 | Outpatient (RCR) | payer OTHER, SELFPAY | END 2024-01-13 23:59 | LOC: NS 08:07 | PROVIDERS: PCP Internal Medicine; Referring Provider Internal Medicine; Visit Provider Internal Medicine | DX: Z71.3 Dietary counseling and surveillance (principal); E66.9 Obesity, unspecified; Z68.41 Body mass index [BMI] 40.0-44.9, adult | CPT/HCPCS: 97803 ==

== ENCOUNTER 2024-01-27 10:40 | Outpatient (RCR) | payer OTHER, SELFPAY | END 2024-02-13 23:59 | LOC: NS 10:40 | PROVIDERS: PCP Internal Medicine; Referring Provider Internal Medicine; Visit Provider Internal Medicine | DX: Z71.3 Dietary counseling and surveillance (principal); E66.9 Obesity, unspecified; Z68.41 Body mass index [BMI] 40.0-44.9, adult | CPT/HCPCS: 97803 ==

== ENCOUNTER → 2024-02-12 | Outpatient (CLI) | payer OTHER, SELFPAY ==
--- NOTE | 2024-02-12 09:59 | RAD_ITS ---
STUDY: X-RAY - LEFT FOOT CLINICAL: Female, 38 years old. s/p left toe dislocation TECHNIQUE: 3 view(s) of the foot. COMPARISON: None. FINDINGS: There is a plantar calcaneal spur. Normal visualized subtalar, talonavicular, calcaneocuboid, tarsal and tarsometatarsal articulations. Talar neck beak. This is a normal anatomical variant. Normal metatarsi. Normal metatarsophalangeal joint of the great toe. Normal tibial and fibular sesamoid bones. Normal interphalangeal joint of the great toe. Normal phalanges of the great toe. Normal second through fifth metatarsophalangeal joints. Nondisplaced oblique fracture through the midportion of the proximal phalanx of the fifth toe. Soft tissue swelling. RAD/Foot min 3 Views IMPRESSION: Nondisplaced oblique fracture through the midportion of the proximal phalanx of the fifth toe with overlying soft tissue swelling. Electronically Signed: Ld Osborne MD at 10:44 EDT ,
== END | disposition home or self-care (01) ==
LOC: MTRAD 09:59
PROVIDERS: PCP Internal Medicine; Referring Provider Nurse Practitioner; Visit Provider Nurse Practitioner
DX: S93.105A Unspecified dislocation of left toe(s), initial encounter (principal)
CPT/HCPCS: 73630

== ENCOUNTER 2024-04-07 09:23 | Outpatient (RCR) | payer OTHER, SELFPAY | END 2024-04-14 23:59 | LOC: NS 09:23 | PROVIDERS: PCP Internal Medicine; Referring Provider Internal Medicine; Visit Provider Internal Medicine | DX: Z71.3 Dietary counseling and surveillance (principal); E66.9 Obesity, unspecified | CPT/HCPCS: 97803 ==

== ENCOUNTER → 2024-06-23 | Outpatient (CLI) | payer OTHER, SELFPAY ==
--- NOTE | 2024-06-24 08:58 | STRESSREP ---
Stress Test Report Exercise stress test. 39-year-old lady with a history of chest pain Stress protocol: Resting EKG demonstrates normal sinus rhythm with a rate of 63 bpm resting blood pressure is 124/82 mmHg. The patient exercised according to the regular [place] protocol for a total duration of 7 minutes attaining a maximum heart rate of 171 bpm which was 93% of maximum predicted heart rate; the maximum workload was 9.8 metabolic equivalents. At rest there were no ST or T wave changes noted to suggest ischemia and at peak exercise upsloping ST changes only were noted which did not meet the criteria for ischemia. The patient however did complain of shortness of breath and chest tightness which resolved on discontinuation of the test. The peak blood pressure was 180/72 with a rate-pressure product of 23,000. Conclusion: Exercise stress test with no EKG criteria for ischemia at high workload. No arrhythmias noted.
== END | disposition home or self-care (01) ==
LOC: CVS 09:55
PROVIDERS: PCP Internal Medicine; Referring Provider Internal Medicine; Visit Provider Internal Medicine
DX: R07.9 Chest pain, unspecified (principal); R06.09 Other forms of dyspnea
CPT/HCPCS: 93017

== ENCOUNTER → 2024-08-04 | Outpatient (CLI) | payer OTHER, SELFPAY ==
[2024-08-04 15:53] LABS: T4 Total, Thyroxin 6.5 ug/dL (4.8-13.9)
== END | disposition home or self-care (01) ==
LOC: LAB 13:38
PROVIDERS: PCP Internal Medicine; Referring Provider Internal Medicine Cardiovascular Disease; Visit Provider Internal Medicine Cardiovascular Disease
DX: R00.2 Palpitations (principal)
CPT/HCPCS: 36415; 84436; 84443

== ENCOUNTER → 2024-10-18 | Outpatient (CLI) | payer OTHER, SELFPAY ==
[2024-10-18 11:28] LABS: hCG Titer Quant., Serum 10624 mIU/mL (1-3)
== END | disposition home or self-care (01) ==
LOC: BWCLAB 09:03
PROVIDERS: PCP Internal Medicine; Referring Provider Obstetrics & Gynecology; Visit Provider Obstetrics & Gynecology
DX: O20.9 Hemorrhage in early pregnancy, unspecified (principal); Z3A.00 Weeks of gestation of pregnancy not specified
CPT/HCPCS: 36415; 84702; 86850; 86900; 86901

== ENCOUNTER 2024-10-20 13:35 | Day surgery (SDC) | payer OTHER, SELFPAY ==
[2024-10-20] VITALS (8 sets, daily range): BP systolic 109–145; BP diastolic 58–81; PULSE 50–89; RESP 16; TEMP 36.2–38.2; O2SAT 57–100; BMI 40.9
--- NOTE | 2024-10-20 11:45 | POC_PTH ---
PATIENT: JANY BEDOLLA LOC: [facility] U#:[id number] AGE/SX: 39/F ROOM: RE10/20/[address]: Dr. Catarina Paulino MD : 1985 BED: DIS: 10/20/2024 SPEC #: [id number] RECD: 10/20/24 17:31 STATUS: TIMI TOVAR #: [id number] LINDY: 10/20/24 11:[address]: Catarina Paulino DEPT: SURGICAL PATHOLOGY RECD BY: Sophia Dickerson ENTERED: 10/21/24 07:21 SP TYPE: PROD CONC OTHR DR: Dr. Fredo Beasley MD Tissues: A - Endometrium, NOS B - Product of conception, NOS Procedures: Surgery Specimen Level IV HEADER OPERATION: D&C, suction, polypectomy PRE-OP DIAGNOSIS: Incomplete TISSUE SUBMITTED: A- Endocervical polyp, B- Products of conception MICROSCOPIC DIAGNOSIS A. Endocervical polyp, polypectomy: Fragments of benign ecto and endocervical polyp with cautery artifacts. B. Products of conception, dilation and curettage: [place], gestational endometrium and immature chorionic villi (products of conception), clinically incomplete . SJ: 10/22/2024 MICROSCOPIC DESCRIPTION Slides are reviewed. GROSS DESCRIPTION A. Received in fixative is one container labeled with the patient's name and designated Endocervical polyp. The specimen consists of multiple irregular fragments of pink congested soft tissue that in aggregate measure 1 x 1 x 0.3 cm. The specimen is totally submitted in one cassette. B. Received in fixative is one container labeled with the patient's name and designated Products of conception. The specimen consists of multiple irregular fragments of hemorrhagic soft tissue that in aggregate measure 7 x 7 x 2 cm. tissue is not identified. Communication Signals Intelligence sections are submitted in three cassettes. LAKEISHA. 10/21/2024 TC:5 CPT:55727q5
--- NOTE | 2024-10-20 14:15 | PRE.ANES_ITS ---
ASA Classification* ASA Classification ASA Classification: 2 and E Assessment & Plan Anesthesia* Anesthesia Assessment Anesthesia Assessment: Discussed sedation and/or anesthesia options, risks, benefits, and alternatives with patient/parents/legal guardian/POA. Questions invited. The patient/parents/legal guardian/POA seems to understand and agrees to proceed with anesthesia plan. Reviewed the physical assessment, medical history, allergy history and patient home medications list prior to surgery/procedure/anesthetic and documented any changes. Performed airway and anesthesia risk assessments. Anesthesia Type Anesthesia Type: MAC (GETA bkup. patient with food at around noon (2.5 hours). aspiration precautions) Anesthesia Focused Assessment* Airway Assessment Mouth opens: >3 cm Mallampati Score: II Focused Labs Anesthesia Preop lab: CBC WBC 6.9 K/mm3 (4.4-11.0) 07/02/24 08:53 07/02/24 RBC 4.29 M/mm3 (4.2-5.4) 07/02/24 08:53 07/02/24 Hgb 12.0 g/dL (12.0-15.0) 07/02/24 08:53 07/02/24 Hct 37.1 % (37-47) 07/02/24 08:53 07/02/24 Plt Count 296 K/mm3 (150-450) 07/02/24 08:53 07/02/24 CHEMISTRY Potassium 4.2 mmol/L (3.5-5.1) 07/02/24 08:53 07/02/24 Sodium 138 mmol/L (136-145) 07/02/24 08:53 07/02/24 Phosphorus 3.2 mg/dL (2.5-4.9) 07/02/24 08:53 07/02/24 BUN 21 mg/dL (7-18) H 07/02/24 08:53 07/02/24 Creatinine 0.63 mg/dL (0.55-1.02) 07/02/24 08:53 07/02/24 Glucose 87 mg/dL (74-106) 07/02/24 08:53 07/02/24 TSH 0.980 uIU/mL (0.358-3.740) 08/04/24 13:40 07/17 COAG HCG, Quant 09910 mIU/mL (1-3) H 10/18/24 09:03 10/18/24 Pre-Assessment Diagnosis/Proposed Procedure Planned Operative Procedure(s): D&C Anesthesia History 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 When Was Last Pacemaker Check QUESTION #4 FULL TEXT: You/Your Family Experience fever (hyperthermia) with Anesthesia Last Oral Intake Last Oral intake: Last Oral Intake NPO since Meds taken in AM with sips of water? Meds patient instructed to take am of surgery PONV PONV - hvac commercial salesperson: PONV - hvac commercial salesperson Female HX of Motion Sickness HX of N/V After Surgery Non-Smoker Duration of Surgery greater than 60 minutes Number of Risk Factors PONV Score Height & Weight Height & Weight: Anesthesia: Height & Weight Height 5 ft 5 in 10/20/24 13:00 Respiratory Assessment Respiratory Assessment - hvac commercial salesperson: Respiratory Tract Infection Hx - hvac commercial salesperson Hx Respiratory Tract Infection STOP Sleep Apnea STOP Sleep Apnea - hvac commercial salesperson: STOP Sleep Apnea - hvac commercial salesperson Hx Hypertension No 04/11/22 13:06 Hx Sleep Apnea No 04/11/22 13:06 CPAP BIPAP Do you snore loudly (louder than talking or can be heard Do you often feel tired/ fatigued/ sleepy during daytime? Has anyone observed you stop breathing during sleep? STOP Results QUESTION #5 FULL TEXT : Do you snore loudly (louder than talking or can be heard through closed doors)? 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 Specify any problems Hx of Preganancy in last 3 Months Nurse Filling Out Transfusion & Questions: Date: Time: Patient unable to answer at this time (ie. confused, unrespo /Reproduction History /Reproductive History - hvac commercial salesperson: /Reproductive Hx- hvac commercial salesperson Hx Now Gestational Age (in weeks): EDC: Hx Hx Para Hx Section SAB No 10/20/24 13:00 PFSH Medical History Hypertension Health care maintenance Class 3 obesity Palpitations Pharyngitis Recurrent tonsillitis History of COVID-19 Cardiac murmur SHILPI (obstructive sleep apnea) NECK AND BACK PAIN Fatigue Anxiety and depression Cervical dysplasia Home Medications ?Medication ?Instructions ?Recorded ?Last Taken ?Type metoprolol succinate 25 mg 25 mg PO QDAY #30 tabs 07/1710/19/24 Rx tablet,extended release 24 hr multivitamin no.47-iron fum 27 cap PO 10/12/24 5 History mg-folate no.1 1 mg-dha 300 mg capsule (PNV-DHA) acetaminophen 500 mg capsule 1,000 mg PO Q6H PRN pain 10/20/24 10/20/24 History Allergy/AdvReac Type Severity Reaction Status Date / Time cat dander Allergy Other Verified 10/20/24 14:04 dog dander Allergy Other Verified 10/20/24 14:04 house dust mite Allergy Other Verified 10/20/24 14:04 Family History Mother Hypertension Father Hypertension Diabetes Heart murmur Grandfather Heart disease Diabetes PAD (peripheral artery disease) Grandmother Heart disease Grandmother Diabetes Cancer Renal failure Heart disease Grandfather Alzheimer's dementia Brother High cholesterol Sister Anxiety Surgical History [place] teeth removed H/O LEEP Social History adopted: No household members: spouse and children number of children: 2 current occupational status: employed 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 pets and animals: Yes (Avoid litterbox) pets and animals: cat(s), dog(s) and fish history of recent travel: No sexually active: Yes Smoking Status: Never smoker alcohol intake: current alcohol intake frequency: a few times a week Alcohol type: wine details: not while substance use type: does not use diet: other caffeine: Yes Type: coffee Number of servings: 2 eating out: 1-3 times/week during the past year weight has: remained stable what type of physical activity do you participate in: walking and bicycling frequency: daily duration: 15-30 minutes/day robert/orthodoxy: Scientologist seatbelt use: always do you feel safe at home: Yes additional social history: - [place] Review of Systems (Anesthesia) ROS Narrative System reviewed and no additional complaints, except as documented.
[2024-10-20] MEDS: Doxycycline 100 MG CAPSULE PO (14:19)
[2024-10-20] MEDS: 0.9% Normal Saline (1000mL) 1,000 ML 15 ML IV (14:19)
[2024-10-20 14:20] LABS: Absolute Lymphocyte Count 1.46 X10^3/uL (0.83-4.51); Absolute Neutrophil Count 6.5 X10^3/uL (2.0-7.7); Basophil# 0.03 X10^3/uL; Basophil% 0.4 % (0-1); Eosinophils% 1.2 % (0-5); Hematocrit 35.4 % (37-47); Hemoglobin 11.6 g/dL (12.0-15.0); Lymphocyte # 1.46 X10^3/ul (0.83-4.51); Lymphocyte % 17.1 % (19-41); Mean Corp Hgb Conc 32.8 g/dL (32-36); Mean Corpuscular Hgb 28.6 pg (27.0-32.0); Mean Corpuscular Volume 87.4 fL (81-99); Mean Platelet Vol. 9.6 fl (6.2-12.0); Monocyte# 0.45 X10^3/uL; Monocyte% 5.3 % (0-10); NRBC Flagged by Analyzer 0 % (0-5); Neutrophil % 75.9 % (47-70); Platelet Count 275 K/mm3 (150-450); RBC Distribution Width SD 45.1 fl (35.1-43.9); Red Blood Count 4.05 M/mm3 (4.2-5.4); White Blood Count 8.6 K/mm3 (4.4-11.0)
--- NOTE | 2024-10-20 14:23 | PCM.HP.BLA ---
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 Required: No Is patient in pain?: Yes Feel stressed/tense/nervous/anxious/difficulty sleeping: rather much Allergies cat dander Allergy (Verified 10/20/24 14:04) Otherdog dander Allergy (Verified 10/20/24 14:04) Otherhouse dust mite Allergy (Verified 10/20/24 14:04) Other Medications ?Medication ?Instructions ?Recorded ?Confirmed ?Type metoprolol succinate 25 mg 25 mg PO QDAY #30 tabs 08/04/24 10/20/24 Rx tablet,extended release 24 hr multivitamin no.47-iron fum 27 cap PO 10/12/24 10/20/24 History mg-folate no.1 1 mg-dha 300 mg capsule (PNV-DHA) acetaminophen 500 mg capsule 1,000 mg PO Q6H PRN pain 10/20/24 10/20/24 History Last Menstrual Period: 08/20/24 Zika: Zika virus screening: Negative : No Have you fallen in the past year?: No PFSH PFS Medical History Health care maintenance Class 3 obesity Palpitations Pharyngitis Recurrent tonsillitis History of COVID-19 Cardiac murmur SHILPI (obstructive sleep apnea) NECK AND BACK PAIN Fatigue Anxiety and depression Cervical dysplasia Surgical History [place] teeth removed H/O LEEP Family History MotherHypertensionFather Hypertension Diabetes Heart murmurGrandfather Heart disease Diabetes PAD (peripheral artery disease)Grandmother Heart diseaseGrandmother Diabetes Cancer Renal failure Heart diseaseGrandfather Alzheimer's dementiaBrother High cholesterolSister Anxiety Social History adopted: No household members: spouse and children number of children: 2 current occupational status: employed 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 pets and animals: Yes (Avoid litterbox) pets and animals: cat(s), dog(s) and fish history of recent travel: No sexually active: Yes Smoking Status: Never smoker alcohol intake: current alcohol intake frequency: a few times a week Alcohol type: wine details: not while substance use type: does not use diet: other caffeine: Yes Type: coffee Number of servings: 2 eating out: 1-3 times/week during the past year weight has: remained stable what type of physical activity do you participate in: walking and bicycling frequency: daily duration: 15-30 minutes/day robert/temple: Congregational seatbelt use: always do you feel safe at home: Yes additional social history: - Brandon History 3 Elective abortions Hx Para 2 Spontaneous abortions Hx # Term Pregnancies Ectopic pregnancies Hx # Pregnancies Multiple births # of living children 2 Past Pregnancies Del. Date Name GA/Weeks Outcome Route Bth Weight Gen Labor Lgth Anesthesia Del Locat Provider FOB Unknown 2012- Elias 41 live - full term 7#11oz Male ? epidural [employer] Chau Taylor Unknown Rodríguez 40 live - full term 7# Male ? epidural [employer] DARA VelásquezBrandon Delivery Date: Last Updated by: Laura Ugalde Elias was born with a heart defect Delivery Date: Last Updated by: Laura Ugalde Very fast delivery HPI New OB, LMP 08/20, TEDDY 05/27/25 Details: JANY BEDOLLA is a 39 year old who presents for early followup, having heavy bleeding for the least few hours, cramping. she started crmaping last night, denies any fevers. GS seen with collapsing yolk sac pole still measruing 1 mm. OB Visit TEDDY Calculator ? 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), Neural Tube Defect: Other, Hemoglobinopathy Or Carrier: Other, Cystic Fibrosis: Other, Chromosome Abnormality: Other, Hector-Sachs: Other, Hemophilia: Other, Intellectual Disability/Autism: Patient (generalized learning disability oldest son), Recurrent Loss/Stillbirth: Other, Other Structural Defect: Other, Other Genetic Disease: Other and Maternal Metabolic Disorder: Other Infection History: Live with someone with TB or Exposed to TB: No, Patient or Partner has history of Genital Herpes: No, Rash or Viral illness since last mentrual period: No, Prior GBS-Infected child: No, History of STD: Yes (+HPV yrs ago, nml since), HIV Infection: No, History of Hepatitis: No, Recent travel outside of [place]: No, Concern for hepatitis exposure: No, Varicella immune: Yes (immune) and Covid Vaccinated: Yes (Moderna,No Boosters) Medical History Medical History: Positive: Psychiatric (anxiety), Depression/ depression, Pulmonary (e.g.,TB,Asthma) (sleep apnea), 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), Operations/hospitalizations ([place] teeth), History of abnormal pap (Last pap 2020 negative/negative), Relevant family history (No changes see PFSH) and Other (obesity ) and Negative: Diabetes, Hypertension, Heart disease (heart murmur, palpitations, increased Heart rate-metoprolol- Seeing ), Auto-immune disorder, Kidney disease/UTI, Neurologic/epilepsy, Hepatitis/liver disease, Varicosities/phlebitis, Thyroid dysfunction, Trauma/domestic violence, History of blood transfusions, D (Rh) Sensitized, Seasonal allergies, Drug/latex allergies/reactions, Breast, Anesthetic complications, Uterine anomaly/davis, Infertility and Anti-retroviral treatment ACOG First Trimester First Trimester: Discussed ROS Const Reports as per HPI and Denies fever(s) ENT Reports system reviewed and no additional complaints, except as documented Card Reports system reviewed and no additional complaints, except as documented Resp Reports system reviewed and no additional complaints, except as documented GI Reports as per HPI Reports as per HPI and Reports abnormal vaginal bleeding Musc Reports system reviewed and no additional complaints, except as documented Skin/Breast Reports system reviewed and no additional complaints, except as documented Neuro Yes system reviewed and no additional complaints, except as documented Endo Reports system reviewed and no additional complaints, except as documented Exam Const General: healthy appearing, comfortable and no acute distress HENMT Head: normal to inspection and normocephalic Neck Neck: no lymphadenopathy noted Thyroid: thyroid normal Chest Chest palpation & inspection: normal inspection of the chest Resp Effort & Inspection: normal respiratory effort Cardio Rate: regular rate Rhythm: regular rhythm GI Inspection: normal to inspection Palpation: soft and nontender External Female Exam: normal external appearance Speculum Exam - Vagina: normal appearance of the vagina and vaginal bleeding Bimanual Exam- Vagina & Uterus: uterine shape normal and non-tender OB/External & Speculum: vaginal bleeding Speculum Exam: vaginal bleeding Skin General: no rashes or lesions noted Neuro General: no focal motor deficits Extrem General: normal to inspection and no pedal edema Psych Appearance: grossly normal Coding Level of Care Code OB Routine Diagnoses Bleeding in early O20.9 Family history of congenital heart defect Z82.79 Supervision of high-risk O09.90 8 weeks gestation of Z3A.08 Weeks of gestation: 8 weeks Advanced maternal age (AMA) in Obesity affecting O99.210 Health care maintenance Z00.00 Class 3 obesity E66.01 Palpitations R00.2 Nondisplaced fracture of proximal phalanx of toe of left foot S92.515A Dislocation of fifth toe, left, closed S93.105A Large breasts N62 Obesity, morbid, BMI 40.0-49.9 E66.01 Recurrent tonsillitis J03.91 Morbid obesity E66.01 Anxiety and depression F41.8 Vitamin D deficiency E55.9 SHILPI (obstructive sleep apnea) G47.33 Dyspnea on exertion R06.00 Chest pain, unspecified type R07.9 Chest pain type: unspecified Cardiac murmur R01.1 Incomplete O03.4 Assessment and Plan Assessment and Plan (1) Bleeding in early : Status: Acute Comment: serial hcgs type and screen, bleeding precautions fu wed fo confirmation of viability (2) Family history of congenital heart defect: Status: Acute Comment: Oldest son with pulmonary atresia (3) Supervision of high-risk : Status: Acute Comment: , TEDDY 05/27/25, TEDDY Rodríguez Griffin, Brandon (4) : Status: Acute Qualifiers: Weeks of gestation: 8 weeks Qualified Code(s): Z3A.08 - 8 weeks gestation of Comment: NIPT-undecided about gender (5) Advanced maternal age (AMA) in : Status: Acute (6) Obesity affecting : Status: Acute (7) Health care maintenance: Status: Acute (8) Class 3 obesity: Status: Acute (9) Palpitations: Status: Acute (10) Nondisplaced fracture of proximal phalanx of toe of left foot: Status: Acute (11) Dislocation of fifth toe, left, closed: Status: Acute (12) Large breasts: Status: Acute (13) Obesity, morbid, BMI 40.0-49.9: Status: Acute Comment: cont whyweight program. Considering weight management with SM. Low carb diet. (14) Recurrent tonsillitis: Status: Chronic (15) Morbid obesity: Status: Chronic (16) Anxiety and depression: Status: Chronic (17) Vitamin D deficiency: Status: Chronic (18) SHILPI (obstructive sleep apnea): Status: Acute (19) Dyspnea on exertion: Status: Chronic (20) Chest pain: Status: Acute Qualifiers: Chest pain type: unspecified Qualified Code(s): R07.9 - Chest pain, unspecified (21) Cardiac murmur: Status: Acute (22) Incomplete : Status: Acute Comment: heavy bleeding proceed with immediate D and c Orders: Orders TAMI 10/12/24 O09.90 - Supervision of high risk , unspecified, unspecified trimester, O99.210 - Obesity complicating , unspecified trimester Plan After discussing the patient's diagnosis and treatment plan options, patient wishes to proceed with surgical management. I have discussed with the patient the risks, benefits, and alternatives of the procedure which include but are not limited to risks of anesthesia, bleeding, infection, possible damage to bowel, bladder, or surrounding vasculature which could lead to additional surgery to evaluate any complications. Patient agrees to procedure and wishes to proceed. ACOG/uptodate references given for additional information regarding procedure. Clinical Quality Measures Falls Risk Screening/Assistive Devices Have you fallen in the past year?: No Office Procedures Add?Procedure ? ? ? Departure ? ? Departure Packet: Portal Print Orders Save?&?Generate Education/Forms/Letters Visit Summary Decline ? Education ? Forms ?
[2024-10-20] MEDS: FERRIC SUBSULFATE 8 GM SOLN (15:00)
[2024-10-20] MEDS: Lidocaine 1% (30 ml sdv) 30 ML Vial (15:00)
[2024-10-20] MEDS: Ketorolac 30 MG/ML Syringe IV (15:27)
--- NOTE | 2024-10-20 15:30 | PCM.POST.ANE ---
Anesthesia: Postop Eval I Current Vital Signs Temperature: 97.2 F Pulse Rate: 57 Blood Pressure: 121/70 Respiratory Rate: 16 Pulse Ox: 57 Oxygen Delivery Method: Room Air Assessment Airway patent: Yes Spontaneous unlabored respirations: Yes nausea: No Vomiting: No Anesthesia Complication: No Fluid Hydration Crystalloid volume administer (ml): 100 Total IV fluid infused: 100 Progress Note Anesthesia document: Postop Eval 1 completed: Yes
--- NOTE | 2024-10-20 15:31 | PCM.POSTANE2 ---
Anesthesia Postop Eval I Sum Postop Eval Completion status Anesthesia document: Postop Eval 1 completed: Yes Anesthesia Postop Eval I Summary Anesthesia Postop Eval I Summary: Anesthesia Postop Eval I: Assessment Summary Airway patent Yes 10/20/24 15:31 Spontaneous unlabored Yes 10/20/24 15:31 respirations Mental status nausea No 10/20/24 15:31 Vomiting No 10/20/24 15:31 Anesthesia Postop Eval I: Fluid Summary Crystalloid volume administer 100 10/20/24 15:31 (ml) Colloids volume administered ( ml) Blood Product volume administered (ml) Total IV fluid infused 100 10/20/24 15:31 Anesthesia Postop Eval I: Summary Notes Anesthesia Complication No 10/20/24 15:31 Anesthesia Complication Comment: Post-operative progress note Anesthesia: Postop Eval II Evaluation Mental status: Awake Pain Level: 0 nausea: No Vomiting: No
--- NOTE | 2024-10-20 16:38 | DCINST_ITS ---
Discharge Instructions Diet Discharge Diet: No restrictions DC O2, CPAP, BIPAP needs Home O2 Discharge instructions: No Dressing / Incision Discharge Activity: Return to Normal Activity, May Shower and May Take a Tub Bath (after 1 week) May resume sexual activity in: 1-2 weeks Weight Bearing Status: Weight bearing as tolerated Lifting Restrictions: none Dressing / Incision Call your doctor if you observe: Fever of 101 or Higher, Using more than 1 pad per hour, Shortness of breath and Uncontrolled pain Follow Up Care Please Follow Up With: Catarina Paulino MD When: Call [phone] to schedule appointment. Test Results: Test results from this visit will be discussed in further detail at your follow- up appointment, if applicable. Discharge Plan Admission Attending Provider: Catarina Paulino Primary Care Provider: Fredo Beasley Instructions Print Language: Malawian Discharge Orders/Prescriptions Prescriptions: No Action metoprolol succinate 25 mg tablet extended release 24 hr 25 mg PO QDAY Qty: 30 3RF PNV-DHA 27 mg iron-1 mg -300 mg capsule PO acetaminophen 500 mg capsule 1,000 mg PO Q6H PRN (Reason: pain) Referrals / Follow Up: Fredo Beasley MD [Primary Care Provider] - Disposition Disposition (needs filled in before D/C Order can be placed): Home, Self Care
--- NOTE | 2024-10-20 16:41 | OP.PCM_ITS ---
Problems Associated Problem List Diagnoses (1) Incomplete : Procedures Urinary/Genital 52xxx-59xxx: [id number] Trmt of incomplete Ab, any TM Operative Report (Standard) Operative Information Date of Procedure: 10/20/24 Pre-Operative Diagnosis: see problem list comments Post-Operative Diagnosis: same Surgery/Procedure Performed: suction dilation and curettage, endocervical polypectomy nurse practitioner manager: No Type of Anesthesia: IV Sedation and Local RN Documented Start/Stop Times: Operation Date: 10/20/24 11:45 Case Time Into Pre-Op 10/20/24 13:45 Anesthesia Start 10/20/24 14:33 Into Room 10/20/24 14:33 Procedure Start 10/20/24 14:51 Procedure End 10/20/24 15:06 Into Recovery 10/20/24 15:14 Anesthesia End 10/20/24 15:16 Out of Room 10/20/24 15:16 Into Phase II Recovery 10/20/24 15:52 Out of Recovery 10/20/24 15:52 Out of Phase II 10/20/24 17:01 Procedure Start Time: 14:51 Procedure Stop Time: 15:06 Select all DRAINS/GRAFTS/IMPLANTS that apply: None Estimated Blood Loss: 100 Specimen collected: Yes Description of specimen(s) removed: retained POC Description of surgery: Patient was taken to the operating room and placed under MAC local anesthesia. She was prepped and draped in the normal sterile fashion the dorsal lithotomy position. Bladder was drained of clear urine and anterior lip of the cervix was grasped and the uterus sounded to 9cm. Cervix was progressively dilated to allow passage of a 19mm suction curette. Progressive passes were made removing the retained products of conception without complication. Sharp curettage confirmed complete removal of the retained products. small endocervical polyp also seen and removed with the bovie. monsels paste applied. All instruments were removed from the vagina and excellent hemostasis was noted and the patient was taken to recovery in stable condition. Surgical Findings: incomplete AB and endocervical polyp present Complications Complications: No
== END 2024-10-20 17:01 | disposition home or self-care (01) ==
LOC: SDC 13:38 → AC 13:40
PROVIDERS: PCP Internal Medicine; Referring Provider Obstetrics & Gynecology; Visit Provider Obstetrics & Gynecology
PROC: (CPT 59812; principal; 2024-10-20 11:30)
DX: O03.4 Incomplete spontaneous abortion without complication (principal); E66.01 Morbid (severe) obesity due to excess calories; E66.813 Obesity, class 3; O34.41 Maternal care for other abnormalities of cervix, first trimester; N84.1 Polyp of cervix uteri; O99.211 Obesity complicating pregnancy, first trimester; Z79.899 Other long term (current) drug therapy; O16.1 Unspecified maternal hypertension, first trimester; Z3A.08 8 weeks gestation of pregnancy
CPT/HCPCS: 59812; 57500; 01965; 85025; 86850; 86900; 86901; 88305; A4216; J2405

== ENCOUNTER → 2024-11-12 | Outpatient (CLI) | payer OTHER, SELFPAY ==
[2024-11-12 15:31] LABS: Color, Urine Yellow (Yellow); Glucose, Dipstick Normal (Normal); Ketone-Dipstick 50 mg/dl (Negative); Leukocyte Esterase-Dipstick 500 /ul (Negative); Nitrite-Dipstick Negative (Negative); Occult Blood-Urine 50 /ul (Negative); Protein-Dipstick 30 mg/dl (Negative); Specific Gravity, Urine 1.025 (1.002-1.030); Urine Bilirubin Dipstick Negative (Negative); Urine Clarity Sl. Cloudy (Clear); Urine Urobilinogen Normal (Normal)
[2024-11-12 16:11] LABS: White Blood Cells >100 SEEN /hpf (0-5)
[2024-11-12 16:12] LABS: Red Blood Cells-Urine 0-5 SEEN /hpf (0-5)
[2024-11-12 16:13] LABS: Bacteria 2+ /hpf (None Seen); Mucous, Urine 1+ /hpf (<or=2+); Squamous Epithelial Cells - UA 0-5 SEEN /hpf (5-10)
== END | disposition home or self-care (01) ==
LOC: LAB 14:45
PROVIDERS: PCP Internal Medicine; Referring Provider Obstetrics & Gynecology; Visit Provider Obstetrics & Gynecology
DX: R39.89 Other symptoms and signs involving the genitourinary system (principal)
CPT/HCPCS: 81001

== ENCOUNTER → 2024-11-24 | Outpatient (CLI) | payer OTHER, SELFPAY ==
[2024-11-24 17:08] LABS: Absolute Lymphocyte Count 1.45 X10^3/uL (0.83-4.51); Absolute Neutrophil Count 3.7 X10^3/uL (2.0-7.7); Basophil# 0.04 X10^3/uL; Basophil% 0.7 % (0-1); Eosinophil# 0.12 X10^3/uL; Eosinophils% 2.1 % (0-5); Hematocrit 36.1 % (37-47); Hemoglobin 11.6 g/dL (12.0-15.0); Lymphocyte # 1.45 X10^3/ul (0.83-4.51); Lymphocyte % 25.5 % (19-41); Mean Corp Hgb Conc 32.1 g/dL (32-36); Mean Corpuscular Hgb 28.4 pg (27.0-32.0); Mean Corpuscular Volume 88.3 fL (81-99); Mean Platelet Vol. 10.6 fl (6.2-12.0); Monocyte# 0.36 X10^3/uL; Monocyte% 6.3 % (0-10); NRBC Flagged by Analyzer 0 % (0-5); Neutrophil % 65.2 % (47-70); Platelet Count 283 K/mm3 (150-450); RBC Distribution Width CV 13.2 % (11.6-14.6); RBC Distribution Width SD 42.8 fl (35.1-43.9); Red Blood Count 4.09 M/mm3 (4.2-5.4); White Blood Count 5.7 K/mm3 (4.4-11.0)
[2024-11-24 17:58] LABS: Thyroid Stim Hormone (TSH) 0.722 uIU/mL (0.300-4.200); hCG Titer Quant., Serum < 1 mIU/mL (<9 non-preg)
== END | disposition home or self-care (01) ==
PROVIDERS: PCP Internal Medicine; Referring Provider Obstetrics & Gynecology; Visit Provider Obstetrics & Gynecology
DX: N93.9 Abnormal uterine and vaginal bleeding, unspecified (principal)
CPT/HCPCS: 36415; 84443; 84702; 85025

== ENCOUNTER → 2024-11-30 | Outpatient (CLI) | payer OTHER, SELFPAY ==
--- NOTE | 2024-11-30 13:23 | US_ITS ---
PROCEDURE: PELVIC W/ TRANSVAGINAL (USPELTVAG), 11/30/2024 REASON FOR EXAM: ABNORMAL UTERINE BLEEDING TECHNIQUE: Grayscale and color doppler transabdominal and transvaginal pelvic ultrasound was performed. COMPARISON: None FINDINGS: Exam is slightly limited by shadowing bowel gas. Uterus: 9.0 x 5.9 x 4.6 cm, Anteverted. Mildly heterogeneous myometrium. Endometrium: 4 mm, echogenic secretory appearance. Cervix: Nabothian cyst. Right ovary: 2.3 x 1.9 x 1.1 cm (estimated volume 2.5 mL), unremarkable. Left ovary: 1.6 x 2.0 x 1.1 cm (estimated volume 1.8 mL), unremarkable. Free fluid: None visualized. Other: Estimated bladder volume on transabdominal scanning 464 mL.. US/Pelvic w/ Transvaginal IMPRESSION: 1. No acute abnormality. 2. Mild findings which are nonspecific but may be seen in adenomyosis. 3. Additional description as above. Reading Location: [id number]
== END | disposition home or self-care (01) ==
LOC: OPUS 13:23
PROVIDERS: PCP Internal Medicine; Referring Provider Obstetrics & Gynecology; Visit Provider Obstetrics & Gynecology
DX: N93.9 Abnormal uterine and vaginal bleeding, unspecified (principal)
CPT/HCPCS: 76830; 76856

== ENCOUNTER → 2025-06-01 | Outpatient (CLI) | payer OTHER, SELFPAY | END | disposition home or self-care (01) | LOC: BIMLAB 10:33 | PROVIDERS: PCP Internal Medicine; Referring Provider Internal Medicine; Visit Provider Internal Medicine | DX: Z00.00 Encounter for general adult medical examination without abnormal findings (principal) ==